=== PATIENT | male | born 2000 | race Caucasian/White ===

== ENCOUNTER 2023-04-13 12:28 | Emergency (ER) | payer OTHER ==
[~2023-04-13] VITALS: Ht 160 cm; Wt 50.2 kg
[2023-04-13] MEDS ORDERED: APAP325T4 PO (13:08)
[2023-04-13] MEDS ORDERED: NS 1,000 ML IV ONE ×2 (13:15→15:10)
[2023-04-13] MEDS ORDERED: KETOROLAC 30 MG/ML 1ML VIAL IV ONE (13:15)
[2023-04-13] MEDS ORDERED: ONDANSETRON 4MG 2ML VIAL IV ONE (13:15)
[2023-04-13 13:42] LABS: BASO % 0.4 % (0.0-1.0); EOS % 0.4 % (0.0-3.0); HEMATOCRIT 43.5 % (42.0-52.0); HEMOGLOBIN 15.1 g/dl (13.5-17.5); LYMPH # 0.6 10^3/uL (1.5-5.0); MEAN CORPUSCULAR HEMOGLOBIN 31.7 pg (27.0-33.0); MEAN CORPUSCULAR HGB CONC 34.7 g/dl (32.0-36.5); MEAN CORPUSCULAR VOLUME 91.2 fl (80.0-96.0); MONO # 0.9 10^3/uL (0.0-0.8); MONO % 8.2 % (2.0-8.0); NEUTROPHILS # 9.5 10^3/uL (1.5-8.5); NEUTROPHILS % 85.4 % (36.0-66.0); PLATELET COUNT, AUTOMATED 119 10^3/uL (150-450); RED BLOOD COUNT 4.77 10^6/uL (4.30-6.10); WHITE BLOOD COUNT 11.1 10^3/uL (4.0-10.0)
[2023-04-13 14:07] LABS: BLOOD UREA NITROGEN 12 MG/DL (9-23); CALCIUM LEVEL 8.8 MG/DL (8.5-10.1); CARBON DIOXIDE LEVEL 26 MMOL/L (20-31); CHLORIDE LEVEL 102 MMOL/L (98-107); CREATININE FOR GFR 0.69 MG/DL (0.70-1.30); GLOMERULAR FILTRATION RATE > 60.0 (>60); GLUCOSE, FASTING 98 MG/DL (60-100); POTASSIUM SERUM 3.6 MMOL/L (3.5-5.1); SODIUM LEVEL 137 MMOL/L (136-145)
[2023-04-13 14:14] LABS: ERYTHROCYTE SEDIMENTATION RATE 45 mm/hr (0-15)
[2023-04-13] MEDS ORDERED: ISOVUE-370 76% 100ML VIAL As Ordered ONE (15:10)
[2023-04-13] MEDS ORDERED: ASPE4PAD TOP (20:23)
[2023-04-13] MEDS ORDERED: NAPR-837 PO (20:23)
[2023-04-13] MEDS ORDERED: CLEO300C2 PO (20:23)
[2023-04-13] MEDS ORDERED: METH-1165 PO (20:23)
[2023-04-13] MEDS ORDERED: methocarbamoL 750 MG TAB PO ONE (20:30)
[2023-04-13] MEDS ORDERED: LIDOCAINE 5% (LIDODERM) PATCH TD ONE (20:30)
[2023-04-13] MEDS ORDERED: CLINDAMYCIN 150MG CAPSULE PO ONE (20:30)
[2023-04-13 20:39] VITALS: BP 115/69; TEMP 98.2; O2SAT 98
== END 2023-04-13 20:41 | disposition home or self-care (01) ==
LOC: M ED 12:28 → EDBD 12:28 → M ED 20:41
DX: M25.552 Pain in left hip (principal); M54.50 Low back pain, unspecified
CPT/HCPCS: 36415; 72193; 73721; 80048; 85025; 85652; 86140; 96361; 96374; 96375; 99284; J1885; J2405; Q9967